=== PATIENT | female | born 1960 | race Caucasian/White ===

== ENCOUNTER → 2016-08-13 | Outpatient (CLI) | payer BC ==
--- NOTE | 2016-08-13 10:39 | US ---
EXAM DESCRIPTION: MAMMO BREAST DIAGNOSTIC UNILATERAL ; US BREAST UNILATERAL Images were reviewed with R2 computer-aided detection. CLINICAL HISTORY: Right breast asymmetry on outside screening study. Personal history of ovarian cancer. COMPARISON: No prior study currently available, the report was brought FINDINGS: True lateral and exaggerated lateral craniocaudal projection views of the right breast were obtained including 17 cm of breast tissue. Glandular tissue is near completely fatty involuted. 16 mm nodule retroareolar right breast 10 o'clock. No architectural distortion or clustered microcalcification. Physical exam reveals no palpable abnormality. Directed ultrasound demonstrates ductal ectasia along the 8-10 o'clock portion of the right breast with a 16 mm cyst with low level echoes at 10 o'clock. No internal vascularity or nodularity was apparent. Small simple cysts are seen. IMPRESSION: Probably benign exam. Fibrocystic changes suspected with a complicated 16 mm cyst right breast 10 o'clock. BIRAD CATEGORY: 3 PROBABLY BENIGN RECOMMENDATION: FOLLOW-UP: Six-month followup right breast ultrasound. Findings and recommendations were discussed with the patient. According to the [employer], yearly mammograms are recommended starting at age 40 and continuing as long as a woman is in good health. Any breast change noted on a breast self-exam should be reported promptly to the patient's healthcare provider. Breast MRI is recommended for women with an approximately 20-25% or greater lifetime risk of breast cancer, including women with a strong family history of breast or ovarian cancer and women who have been treated for Hodgkin's disease. Electronically signed by: Monica Carver 08/13/2016 10:37
== END ==
LOC: MAMMO 08:56
PROVIDERS: ATTEND Family Medicine
DX: R92.8 Other abnormal and inconclusive findings on diagnostic imaging of breast (principal); N60.01 Solitary cyst of right breast

== ENCOUNTER → 2017-09-23 | Outpatient (CLI) | payer MEDICARE ==
--- NOTE | 2017-09-23 09:40 | RAD ---
RIGHT HAND HISTORY:HAND PN COMPARISON:None FINDINGS: Three views of hand demonstrate anatomic bony alignment. No fracture, dislocation nor inflammatory bony erosion is identified. Joint spaces are maintained. No soft tissue abnormality detected along the hand. IMPRESSION: No bony injury in right hand Electronically signed by: Aleksandar Samson MD 09/23/2017 9:39 AM CHIEF OPERATIONS OFFICER
== END ==
LOC: RAD 08:20
PROVIDERS: ATTEND Orthopaedic Surgery
DX: M79.641 Pain in right hand (principal); M79.644 Pain in right finger(s)